=== PATIENT | female | born 1990 | race Caucasian/White ===

== ENCOUNTER 2018-05-10 11:07 | Outpatient (CLI) | payer OTHER | END 2018-05-10 11:08 | disposition home or self-care (01) | LOC: C.LAB 11:07 | DX: Z3A.27 27 weeks gestation of pregnancy (principal) ==

== ENCOUNTER 2018-06-29 11:21 | Outpatient (CLI) | payer OTHER | END 2018-06-29 11:22 | disposition home or self-care (01) | LOC: C.LAB 11:21 | DX: Z3A.33 33 weeks gestation of pregnancy (principal) ==

== ENCOUNTER 2018-07-20 22:05 | Emergency (ER) | payer OTHER ==
[2018-07-20 22:25] VITALS: BMI 33.2
[2018-07-20 22:40] LABS: SQUAMOUS EPITHIAL 21 /hpf (0-5); URINE BACTERIA FEW (<OCC); URINE BILIRUBIN NEGATIVE (NEGATIVE); URINE BLOOD NEGATIVE (NEGATIVE); URINE CLARITY Hazy (Clear); URINE COLOR Yellow (YELLOW); URINE GLUCOSE (UA) NORMAL (Normal); URINE LEUKOCYTE ESTERASE 3+ Leu/uL (Negative); URINE PROTEIN NEGATIVE (NEGATIVE); URINE UROBILINOGEN NORMAL mg/dL (0.2-1.0)
--- NOTE | 2018-07-20 23:42 | OBHP ---
Datetime: 07/20/2018 23:31 IP Adm Impression: Term, intrauterine ; No Active Labor; Intact Membranes IP Admit Plan: Discharge home Admit Comment, IP Provider: 27 yo female with an IUP at 38.5 and here with c/o of suprapubi c discomfort for the past 2 days. Drinks no water and admits to adequate FM. Denies contractions, VB or VD. PMHx and PSHx Negative Meds PNV NKDA Social HX Negative x 3 PE as noted above A/P Term Not in labor UA sent and + UTI and Dehydration NST Reactive No contractions recorded or palpated Macrobid 100 po given with a pitcher of water Rx for Macrobid x 7 days also given Advised to increase po water intake and to keep her next appointment at the clinic on Monday 07/24. Discharge home in Stable and Satisfactory condition Pelvic Type - PN: Adequate Extremities - PN: Normal Abdomen - PN: Normal Back - PN: Normal Breast - PN: Not Done Lungs - PN: Normal Heart - PN: Normal Thyroid - PN: Normal Neurologic - PN: Normal HEENT - PN: Normal General - PN: Normal Presentation-Admit: Vertex FHR - Baseline A Provider: 150 Membranes, Provider: Intact Gestation - Est Wks by US: 38.5 EGA AdmitDate IP: 38.5 Vital Signs Provider: Reviewed IP Chief Complaint: Signs/symptoms UTI NICHD Variability Prov Fetus A: Moderate 6-25bpm NICHD Accel Fetus A IP Provider: 10X10 NICHD Decel Fetus A IP Provider: None Dilatation, Provider: 0 Effacement, Provider: 30 Station, Provider: -3 Genitourinary Exam: Normal DTRs - PN: Normal
--- NOTE | 2018-07-20 23:45 | OBDCSUM ---
Datetime: 07/20/2018 23:35 Discharged to, Provider: Home Follow up at, Provider: [facility] Disch Instr Activity: Normal activity Disch Instr Diet: Regular Discharge Instructions, Provider: Routine instructions given Discharge Time: 07/20/2018 23:35 Follow up in weeks, Provider: appointment on 429 Disch Referrals: None Contraception discussed, Prov: No Disch Activity Restrictions: No exercising; No lifting; No sexual activity Discharge Comment, Provider: 27 yo female with an IUP at 38.5 and here with c/o of suprapub ic discomfort for the past 2 days. Drinks no water and admits to adequate FM. Denies contractions, VB or VD. PMHx and PSHx Negative Meds PNV NKDA Social HX Negative x 3 PE as noted above A/P Term Not in labor UA sent and + UTI and Dehydration NST Reactive No contractions recorded or palpated Macrobid 100 po given with a pitcher of water Rx for Macrobid x 7 days also given Advised to increase po water intake and to keep her next appointment at the clinic on Monday 07/24. Discharge home in Stable and Satisfactory condition Discharge Diagnosis Prov Other: Dehydration UTI
[2018-07-21 06:13] VITALS: BP 108/74; PULSE 97; TEMP 97.1
== END 2018-07-20 23:40 | disposition home or self-care (01) ==
LOC: C.EROB 22:05
DX: O23.43 Unspecified infection of urinary tract in pregnancy, third trimester (principal); Z3A.38 38 weeks gestation of pregnancy; O26.893 Other specified pregnancy related conditions, third trimester; E86.0 Dehydration

== ENCOUNTER 2018-07-29 07:28 | Emergency (ER) | payer MEDICAID, OTHER ==
--- NOTE | 2018-07-29 08:39 | OBHP ---
Datetime: 07/29/2018 08:30 IP Adm Impression: Term, intrauterine IP Admit Plan: Discharge home Admit Comment, IP Provider: PT PRESENTS TODAY STATING THAT HER DOCTOR TOLD HER TO COME IT TODAY. PT Denies pain, contractions or leaking of fluid. POBHX: 2015 , FEMALE [facility]6LBS 2016 , FEMALE, [facility]7L[facility] PGYNHX: HX OF REPEAT UTIS. ON MEDICATION NOW, BUT NON COMPLIANT GBS STATUS: UNKNOWN A+ PNL: WNL A/P: 27 @ 40 WEEKS PRESENTS TODAY FOR EVALUATION BY HER PROVIDER. NO COMPLAINTS TODAY 1)VSS: AFEBRILE 2) ON ADMISSION, TRACING WAS NOT REACTIVE, D5LR AND OJ GIVEN TO PT, NOW NST; REACTIVE 3) RECOMMENDED PT TO FOLLOW UP WITH HER PROVIDER TO SCHEDULE IOL AT 41 WEEKS. 4) NEED GBS STATUS Pelvic Type - PN: Adequate Extremities - PN: Normal Abdomen - PN: Normal Back - PN: Normal Breast - PN: Normal Lungs - PN: Normal Heart - PN: Normal Thyroid - PN: Normal Neurologic - PN: Normal HEENT - PN: Normal General - PN: Normal FHR - Baseline A Provider: 150 Membranes, Provider: Intact Contraction Comments Provider: none Comments, ACOG Physical Exam: SVE: CLOSED/LONG/HI Pool Provider: Negative EGA AdmitDate IP: 40.0 Vital Signs Provider: Reviewed IP Chief Complaint: evaluation; Other NICHD Variability Prov Fetus A: moderate NICHD Accel Fetus A IP Provider: 15X15 FHR Category Provider Fetus A: Category I NICHD Decel Fetus A IP Provider: None Dilatation, Provider: closed Effacement, Provider: long Station, Provider: -3 Genitourinary Exam: Normal DTRs - PN: Normal
[2018-07-29 12:39] VITALS: BP 114/69; PULSE 86; RESP 20; TEMP 97.5
== END 2018-07-29 08:35 | disposition home or self-care (01) ==
LOC: C.EROB 07:28
DX: O26.893 Other specified pregnancy related conditions, third trimester (principal); Z3A.40 40 weeks gestation of pregnancy

== ENCOUNTER 2018-07-31 09:41 | Outpatient (CLI) | payer OTHER | END 2018-07-31 09:42 | disposition home or self-care (01) | LOC: C.LAB 09:41 | DX: Z3A.39 39 weeks gestation of pregnancy (principal); O09.30 Supervision of pregnancy with insufficient antenatal care, unspecified trimester ==

== ENCOUNTER 2018-08-01 11:44 | Inpatient (IN) | payer MEDICAID, OTHER ==
[2018-08-01 12:31] VITALS: BMI 36.1
[2018-08-01] MEDS ORDERED: Oxytocin 30 UNIT in NS 500 ml 30 UNITS/500 ML BAG IV ONE ×3 (12:31→18:18)
[2018-08-01] MEDS ORDERED: Lactated Ringer's 1,000 ML IV SCH ×2 (12:45→13:00)
[2018-08-01] MEDS ORDERED: Penicillin G Potassium 5 MU in Dextrose 5% In Water 50 ML IV ONE (13:25)
[2018-08-01 13:29] LABS: BASO % 0.7 % (0.0-2.0); EOS # 0.2 K/uL (0.0-0.7); EOS % 2.7 % (0.0-4.0); HEMOGLOBIN 10.5 g/dL (11.0-16.0); LYMPH # 1.7 K/uL (1.0-4.3); LYMPH % 27.7 % (20.0-40.0); MEAN CORPUSCULAR HEMOGLOBIN 26.3 pg (27.0-31.0); MEAN CORPUSCULAR HGB CONC 32.6 g/dL (33.0-37.0); MEAN PLATELET VOLUME 9.8 fL (7.2-11.7); MONO # 0.5 K/uL (0.0-0.8); MONO % 8.5 % (0.0-10.0); NEUT # 3.7 K/uL (1.8-7.0); NEUT % 60.4 % (50.0-75.0); NRBC % 0.1 % (0.0-2.0); RED CELL DISTRIBUTION WIDTH 14.8 % (11.5-14.5); WHITE BLOOD COUNT 6.2 K/uL (4.8-10.8)
[2018-08-01 13:31] LABS: MEAN CELL VOLUME 80.5 fL (81.0-99.0)
[2018-08-01 13:43] LABS: ALB/GLOB RATIO 1.1 (1.0-2.1); ALBUMIN 3.2 g/dL (3.5-5.0); ALT/SGPT 18 U/L (9-52); AST/SGOT 25 U/L (14-36); BLOOD UREA NITROGEN 8 mg/dL (7-17); CALCIUM 8.9 mg/dl (8.6-10.4); GFR NON-AFRICAN AMERICAN > 60
[2018-08-01] MEDS ORDERED: Penicillin G 5 Million Unit Vial IVPB ONE (13:43)
[2018-08-01 14:00] LABS: SQUAMOUS EPITHIAL 12 /hpf (0-5); URINE BACTERIA RARE (<OCC); URINE BILIRUBIN NEGATIVE (NEGATIVE); URINE BLOOD NEGATIVE (NEGATIVE); URINE CLARITY Hazy (Clear); URINE COLOR Yellow (YELLOW); URINE GLUCOSE (UA) NORMAL (Normal); URINE LEUKOCYTE ESTERASE 3+ Leu/uL (Negative); URINE PROTEIN NEGATIVE (NEGATIVE); URINE UROBILINOGEN NORMAL mg/dL (0.2-1.0)
--- NOTE | 2018-08-01 14:51 | OBHP ---
Datetime: 08/01/2018 14:21 FHR - Baseline A Provider: 150 Amniotic Fluid Color, Provider: Clear Membranes, Provider: Ruptured Contraction Comments Provider: irregular Vital Signs Provider: Reviewed NICHD Variability Prov Fetus A: Moderate 6-25bpm Dilatation, Provider: 3 Effacement, Provider: 40 Station, Provider: -3 Datetime: 08/01/2018 13:59 IP Adm Impression: Postterm, intrauterine IP Admit Plan: Admit to unit; Initiate labor protocol Admit Comment, IP Provider: Patient is a 27 year old at 40w3d [place] 07/29/18 by LMP who presente d to the unit for contractions. She states that contractions started two days ago and have been getti ng stronger. Patient endorses +FM, denies LOF or VB. Offers no other complaints at this time. Issues: Recurrent UTI OB Hx: 1. 2014 at 40 weeks, female , 6lbs, no complications 2. 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: LMP - 10/22/17 [facility] - 13 x regular x 5 days Denies history of fibroids, ovarian cysts, STIs Denies history of abnormal pap smears Allergies: NKDA Medications: PNV Medical History: Denies Surgical History: Denies Social History: Denies alcohol, tobacco, drug use, from [place] lives with spouse and children Family History: Denies PE: see above A/P: Patient is a 27 year old at 40w3d in early labor, post dates -Admit to the unit -Admission labs: CBC, CMP, UA, T+S -GBS unknown: Started on Pen G 5 MMU x 1, Pen G 2.5 MMU q4H until delivery -Lactated ringers bolus -Anesthesia on consult for pain control -Anticipate vaginal delivery -Plan discussed with Dr Bossman Briceño DO PGY-2 Pt seen and examined with Dr. Briceño and after fully discussed her findings and POC with her, Jacque beaulieu. Pelvic Type - PN: Adequate Extremities - PN: Normal Abdomen - PN: Normal Back - PN: Normal Breast - PN: Not Done Lungs - PN: Normal Heart - PN: Normal Thyroid - PN: Normal Neurologic - PN: Normal HEENT - PN: Normal General - PN: Normal Presentation-Admit: Vertex Comments, ACOG Physical Exam: Gen: NAD, AAOx3 Abdomen: Soft, gravid Extremities: No clubbing, cyanosis, edema SVE: /-3 Gestation - Est Wks by US: 40.3 IP Hx Assessment: The History has been Reviewed and is Current EGA AdmitDate IP: 40.3 IP Indication for Induction: Not Applicable IP Chief Complaint: Uterine contractions NICHD Accel Fetus A IP Provider: 10X10 NICHD Decel Fetus A IP Provider: None Genitourinary Exam: Normal DTRs - PN: Normal
[2018-08-01] MEDS ORDERED: Bupivacaine HCl/FentaNYL Cit 100 ML EPI ONE (15:06)
--- NOTE | 2018-08-01 15:06 | OBADHP ---
Datetime: 08/01/2018 14:21 FHR - Baseline A Provider: 150 Amniotic Fluid Color, Provider: Clear Membranes, Provider: Ruptured Contraction Comments Provider: irregular Vital Signs Provider: Reviewed NICHD Variability Prov Fetus A: Moderate 6-25bpm Dilatation, Provider: 3 Effacement, Provider: 40 Station, Provider: -3 Datetime: 08/01/2018 13:59 Admit Comment, IP Provider: Patient is a 27 year old at 40w3d [place] 07/29/18 by LMP who presente d to the unit for contractions. She states that contractions started two days ago and have been getti ng stronger. Patient endorses +FM, denies LOF or VB. Offers no other complaints at this time. Issues: Recurrent UTI OB Hx: 1. 2014 at 40 weeks, female , 6lbs, no complications 2. 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 [facility] - 13 x regular x 5 days Denies history of fibroids, ovarian cysts, STIs Denies history of abnormal pap smears Allergies: NKDA Medications: PNV Medical History: Denies Surgical History: Denies Social History: Denies alcohol, tobacco, drug use, from [place] lives with spouse and children Family History: Denies PE: see above A/P: Patient is a 27 year old at 40w3d in early labor, post dates -Admit to the unit -Admission labs: CBC, CMP, UA, T+S -GBS unknown: Started on Pen G 5 MMU x 1, Pen G 2.5 MMU q4H until delivery -Lactated ringers bolus -Anesthesia on consult for pain control -Anticipate vaginal delivery -Plan discussed with Dr Bossman Briceño DO PGY-2 Pt seen and examined with Dr. Briceño and after fully discussed her findings and POC with her, I tammy beaulieu. Pelvic Type - PN: Adequate Extremities - PN: Normal Abdomen - PN: Normal Back - PN: Normal Breast - PN: Not Done Lungs - PN: Normal Heart - PN: Normal Thyroid - PN: Normal Neurologic - PN: Normal HEENT - PN: Normal General - PN: Normal Presentation-Admit: Vertex Comments, ACOG Physical Exam: Gen: NAD, AAOx3 Abdomen: Soft, gravid Extremities: No clubbing, cyanosis, edema SVE: /-3 Gestation - Est Wks by US: 40.3 IP Hx Assessment: The History has been Reviewed and is Current IP Chief Complaint: Uterine contractions NICHD Accel Fetus A IP Provider: 10X10 NICHD Decel Fetus A IP Provider: None Genitourinary Exam: Normal DTRs - PN: Normal EGA AdmitDate IP: 40.3 IP Adm Impression: Postterm, intrauterine IP Admit Plan: Admit to unit; Initiate labor protocol Datetime: 07/29/2018 08:30 Pool Provider: Negative FHR Category Provider Fetus A: Category I
--- NOTE | 2018-08-01 16:03 | OBPN ---
Datetime: 08/01/2018 15:40 IP Progress Impression: Normal progression of labor IP Procedures: Sterile Vag Exam IP Progress Plan: Continue present management; Augmentation; Anticipate Vaginal Delivery Membranes, Provider: Ruptured Amniotic Fluid Color, Provider: Clear Contraction Comments Provider: q2-4min FHR - Baseline A Provider: 140 IP Progress Note Comment: Patient seen and examined at bedside. Patient is s/p epidural. Resting com fortably. Pitocin on 4MMU. SVE: /-2 A/P: Patient is a 27 year old at 40w3d in labor, s/p epidural -GBS unknown : continue antibiotics -Continue pitocin for augmentation -Plan for vaginal delivery -Discussed with Dr Bossman Briceño DO PGY-2 Vital Signs Provider: Reviewed NICHD Variability Prov Fetus A: Minimal - Undetectable to <5bpm Dilatation, Provider: 6 Effacement, Provider: 90 Station, Provider: -2 NICHD Decel Fetus A IP Provider: None Datetime: 08/01/2018 14:21 IP Informed Consent Obtain: Vaginal Delivery Gestation - Est Wks by US: 40.3 Presentation-Admit: Vertex Datetime: 08/01/2018 13:59 NICHD Accel Fetus A IP Provider: 10X10 Datetime: 07/29/2018 08:30 Pool Provider: Negative FHR Category Provider Fetus A: Category I
--- NOTE | 2018-08-01 17:56 | OBDS ---
DELIVERY PERSONNEL Delivery Doctor: Arsalan Keita DO Blower Installer: Richelle Del Toro RN Anesthesiologist: Rj Corral MD MATERNAL INFORMATION Delivery Anesthesia: Epidural Medications in Delivery: Pitocin Estimated Blood Loss (ml): 200 Placenta Cultured: No Maternal Complications: None Provider Comments: of viable female from SURJIT positiion and over an intact perineum and a fter clampping and transecting a tight CNC after delivery of the head. scores 9_9 and Eusebio ght 6lbs, 13oz. Cord blood and cord pH obtained and sent. Placenta spontaneously delivered with 3 vessel cord and discarded. EBL 200 mls No complications Medical Student Silvestre assisted LABOR SUMMARY EDC: 07/29/2018 00:00 No. Babies in Womb: 1 Attempted: No Labor Anesthesia: Epidural LABOR INFORMATION Reason for Induction: Not Applicable Onset of Labor: 08/01/2018 12:28 Complete Dilatation: 08/01/2018 17:30 Oxytocin: Augmentation Group B Beta Strep: Done, Result Unknown (Annotations: Called [facility] to fax result of GBS. No result given still.) Antibiotics # of Doses: 2 Antibiotics Time of Last Dose: Pen G 2.5 @ 08/01/18 at 1726 Steroids Given: None Reason Steroids Not Administered: Not Applicable MEMBRANES Membranes Rupture Method: Artificial Rupture of Membranes: 08/01/2018 13:20 Length of Rupture (hrs): 4.25 Amniotic Fluid Color: Clear Amniotic Fluid Amount: Small Amniotic Fluid Odor: Normal STAGES OF LABOR Stage 1 hrs: 5 Stage 1 min: 2 Stage 2 hrs: 0 Stage 2 min: 5 Stage 3 hrs: 0 Stage 3 min: 4 Total Time in Labor hrs: 5 Total Time in Labor min: 11 VAGINAL DELIVERY Episiotomy: None Laceration Extension: N/A Laceration Type: None Laceration Repair: Not Applicable Initial Vag Sponge Count: 10 Final Vag Sponge Count: 10 Initial Vag Sharps Count: 0 Final Vag Sharps Count: 0 Sponge Count Correct: Yes; Vaginal Sweep Performed Sharps Count Correct: N/A BABY A INFORMATION Delivery Date/Time: 08/01/2018 17:35 Method of Delivery: Vaginal Born in Route : No : N/A Forceps: N/A Vacuum Extraction: N/A Shoulder Dystocia : No SHOULDER DYSTOCIA BABY A Delivery Date/Time: 08/01/2018 17:35 PRESENTATION/POSITION BABY A Presentation: Cephalic Cephalic Presentation: Vertex Vertex Position: Right Occipital Anterior Breech Presentation: N/A PLACENTA INFORMATION BABY A Placenta Delivery Time : 08/01/2018 17:39 Placenta Method of Delivery: Spontaneous Placenta Status: Delivered SCORES BABY A Heart Rate 1 min: >100 bpm Resp Effort 1 min: Good Cry Reflex Irritability 1 min: Cough or Sneeze or Pulls Away Muscle Tone 1 min: Active Motion Color 1 min: Body [place], Extremities Blue Resuscitation Effort 1 min: N/A SCORE 1 MIN: 9 Heart Rate 5 min: >100 bpm Resp Effort 5 min: Good Cry Reflex Irritability 5 min: Cough or Sneeze or Pulls Away Muscle Tone 5 min: Active Motion Color 5 min: Body [place], Extremities Blue Resuscitation Effort 5 min: N/A SCORE 5 MIN: 9 INFANT INFORMATION BABY A Gestational Age at Delivery: 40.3 Gestational Status: Term Outcome : Liveborn Condition : Stable Sex: Female IDENTIFICATION/MEDS BABY A ID Band Number: [id number] ID Band Location: Left Leg; Left Arm Sensor Applied: Yes Sensor Number: [id number] Sensor Location : Cord Clamp Vitamin K Given : Not Given Erythromycin Given: Not Given WEIGHT/LENGTH BABY A Birthweight (gms): 3100 Infant Weight (lb): 6 Weight (oz): 13 Infant Length Inches: 19.00 Length cms: 48.3 CORD INFORMATION BABY A No. Cord Vessels: 3 Nuchal Cord : Around Neck x1, Tight Infant Cord pH Baby Arterial: 7.33 Cord Blood Taken: Yes Infant Suction: Mouth; Nose ASSESSMENT BABY A Complications: None Physical Findings at Delivery: Within Normal Limits Infant Respirations: Appears Normal Metalizing Supervisor/ALS Called : No Transferred To: Nursery
[2018-08-01] MEDS ORDERED: Penicillin G Potassium 2.5 MU in Dextrose 5% In Water 50 ML IV SCH (18:00)
[2018-08-01] MEDS ORDERED: Oxycodone/Acetaminophen 5/325 mg Tab PO PRN (18:18)
[2018-08-01] MEDS: Benzocaine/Menthol 20%-0.5% Topical Spray (60 ml) TOP PRN (21:17)
[2018-08-02 07:46] LABS: BASO % 0.5 % (0.0-2.0); EOS # 0.2 K/uL (0.0-0.7); EOS % 2.2 % (0.0-4.0); HEMOGLOBIN 10.6 g/dL (11.0-16.0); LYMPH # 2.6 K/uL (1.0-4.3); LYMPH % 28.7 % (20.0-40.0); MEAN CELL VOLUME 80.3 fL (81.0-99.0); MEAN CORPUSCULAR HEMOGLOBIN 27.3 pg (27.0-31.0); MEAN PLATELET VOLUME 9.9 fL (7.2-11.7); MONO # 0.8 K/uL (0.0-0.8); MONO % 9.2 % (0.0-10.0); NEUT # 5.4 K/uL (1.8-7.0); NEUT % 59.4 % (50.0-75.0); RBC 3.89 Mil/uL (3.80-5.20); WHITE BLOOD COUNT 9.1 K/uL (4.8-10.8)
[2018-08-02] MEDS: Multiple Vitamins Tab PO SCH (09:57)
[2018-08-02] MEDS: Oxycodone/Acetaminophen 5/325 mg Tab PO PRN (16:57)
--- NOTE | 2018-08-02 21:44 | OBPPN ---
Datetime: 08/02/2018 12:14 PP Pain Prov: Abnormal PP Nausea Prov: Denies PP Flatus Prov: No PP BM Prov: No PP Breasts Prov: Not Done PP Heart Prov: Normal PP Lungs Prov: Normal PP Abdomen/Uterus Prov: Normal PP Lochia Prov: Normal PP Vulva/Perineum Prov: Not Done PP CVA Tenderness Prov: Normal PP Extremities Prov: Normal PP C/S Incision Prov: Not Applicable PP Progress Prov: Normal PP Comments Phys Exam Prov: Fundus firm, Non-tender and below Umbilicus PP Impression Prov: Normal progression PP Plan Prov: Continue present management PP Progress Note Prov: Patient seen and examined at bedside. No acute events overnight. Patient repo rts noticeable pain in lower abdominal region that is worse with . Patient has taken mot rin yesterday evening at _ 2100 with some improvement. Pt reports no flatulance / bowel movement yet. Pt reports drinking minimal water. Patient additionally states she has been with no is sues and has started to ambulate. Pt denies headaches, fevers, chill, chest pain, SOB, nausea, vomiti ng, trouble voiding. VSS Gen: AAOx3 Abdomen: soft, fundus firm 1 finger breath above umbilicus, generalized lower abdominal tenderness , non-peritoneal Ext: No clubbing, cyanosis, edema; no calf tenderness Labs: 6.2>10.5/32.2<172 9.1>10.6/31.2<174 A positive rubella immune A/P Patient is a 27 year old s/p PPD#1 - stable, afebrile - encourage pt to oral pain control w/ motrin _ percocet Q4H PRN - encorage ambulation - encourage PO hydration - continue to breastfeed - full diet - plan discussed with Dr. Bossman Cardenas DO PGY-1 Pt seen and examined with Dr. Cardenas and agreed with his findings and POC. IP PP Procedures: None Vital Signs Provider PP: Reviewed; Within Normal Limits
[2018-08-03] MEDS: Multiple Vitamins Tab PO SCH (10:30)
[2018-08-03] MEDS: Benzocaine/Menthol 20%-0.5% Topical Spray (60 ml) TOP PRN (10:31)
[2018-08-03 10:54] VITALS: RESP 18; O2SAT 98
[2018-08-03] MEDS: Oxycodone/Acetaminophen 5/325 mg Tab PO PRN (13:02)
--- NOTE | 2018-08-03 15:18 | OBPPN ---
Datetime: 08/03/2018 11:15 PP Pain Prov: Within normal limits PP Nausea Prov: Denies PP Flatus Prov: Yes PP BM Prov: Yes PP Breasts Prov: Normal PP Heart Prov: Normal PP Lungs Prov: Normal PP Abdomen/Uterus Prov: Normal PP Lochia Prov: Normal PP Vulva/Perineum Prov: Normal PP CVA Tenderness Prov: Normal PP Extremities Prov: Normal PP C/S Incision Prov: Not Applicable PP Progress Prov: Normal PP Impression Prov: Normal progression PP Plan Prov: Discharge PP Progress Note Prov: A/P 27 year old female [id number] s/p PPD #2 Stable, afebrile Pain controlled with Motrin Continue ambulation Encourage PO hydration Continue to breast feed Stable to be discharged home, follow up outpatient clinic IP PP Procedures: None Vital Signs Provider PP: Reviewed; Within Normal Limits
[2018-08-03 16:52] VITALS: BP 120/87; PULSE 84; TEMP 97.4
== END 2018-08-03 17:00 | disposition home or self-care (01) | DRG 560 ==
LOC: C.EROB 11:44 → C.4D 12:57 → C.4M 20:52
PROVIDERS: ADMIT Obstetrics & Gynecology; ATTEND Obstetrics & Gynecology
PROC: 10E0XZZ Delivery of Products of Conception, External Approach (ICD-10-PCS; principal; 2018-08-01)
DX: O69.1XX0 Labor and delivery complicated by cord around neck, with compression, not applicable or unspecified (principal); O23.43 Unspecified infection of urinary tract in pregnancy, third trimester; Z37.0 Single live birth; O48.0 Post-term pregnancy; Z3A.40 40 weeks gestation of pregnancy